=== PATIENT | male | born 1970 | race Caucasian/White ===

== ENCOUNTER 2016-11-05 16:25 | Emergency (ER) | payer BC ==
[~2016-11-05] VITALS: Ht 177.8 cm; Wt 142.9 kg
[2016-11-05] MEDS ORDERED: NYQUIL (16:39)
[2016-11-05] MEDS ORDERED: ONDANSETRON IV *ER 4 MG/2 ML VIAL IV ONE (17:00)
[2016-11-05] MEDS ORDERED: IV NS 1000 ML 1,000 ML IV ONE (17:00)
--- NOTE | 2016-11-05 17:03 | NUR ---
NOSE SWABS COLLECTED FOR FLU.
[2016-11-05 17:19] LABS: HEMOGLOBIN 15.7 g/dL (14.0-18.0)
[2016-11-05 17:24] LABS: CALCIUM 8.1 mg/dL (8.5-10.1); CREATININE 1.2 mg/dL (0.6-1.3); POTASSIUM 4.5 mmol/L (3.5-5.1)
[2016-11-05 17:27] LABS: HEMATOCRIT 46.5 % (40.0-50.0); MEAN CORPUSCULAR HEMOGLOBIN 32.6 uug (27.0-31.0); MEAN CORPUSCULAR HGB CONC 34 g/dL (32.0-37.0); MEAN CORPUSCULAR VOLUME 96.6 fL (82.0-92.0); PLATELET COUNT (AUTO) 150 K/uL (150-450); RED BLOOD CELL COUNT(AUTO) 4.82 MIL/uL (4.70-6.10); WHITE BLOOD COUNT (AUTO) 6.4 K/uL (4.0-11.2)
[2016-11-05 17:29] LABS: ALBUMIN 3.5 g/dL (3.4-5.0); BILIRUBIN,TOTAL 0.9 mg/dL (0.2-1.0); TOTAL PROTEIN, SERUM 7.1 g/dL (6.4-8.2)
[2016-11-05 18:01] LABS: BAND % (MANUAL) 4 % (0-10); EOSINOPHILS % (MANUAL) 2 % (0-8); LYMPHOCYTES % (MANUAL) 15 % (20-40); MONOCYTES % (MANUAL) 2 % (2-10); NEUTROPHILS % (MANUAL) 77 % (42-75)
[2016-11-05 18:02] LABS: PLATELET ESTIMATE ADEQUATE
[2016-11-05] MEDS ORDERED: ONDANSETRON 4 MG/2 ML VIAL ONE (18:05)
--- NOTE | 2016-11-05 18:41 | NUR ---
PT WAS D/C TO HOME. D/C INSTRUCTIONS GIVEN TO THE PT.
[2016-11-05 18:43] VITALS: BP 142/88
[2016-11-05 20:57] LABS: CREATINE KINASE MB 0.7 ng/mL (0-5.0)
== END 2016-11-05 18:44 | disposition home or self-care (01) ==
LOC: ER 16:25
DX: B34.9 Viral infection, unspecified (principal); S89.92XA Unspecified injury of left lower leg, initial encounter; R19.7 Diarrhea, unspecified; E66.01 Morbid (severe) obesity due to excess calories; Z88.0 Allergy status to penicillin; Z88.1 Allergy status to other antibiotic agents; X58.XXXA Exposure to other specified factors, initial encounter; Y93.89 Activity, other specified; Y99.8 Other external cause status; Y92.89 Other specified places as the place of occurrence of the external cause
CPT/HCPCS: 36415; 74022; 80053; 82550; 82553; 84484; 85025; 85610; 87400 ×2; 93005; 96361; 96374; 99285; A4663; J2405; J7030; 70030-TC

== ENCOUNTER 2017-05-11 12:46 | Emergency (ER) | payer BC ==
[~2017-05-11] VITALS: Ht 175.3 cm; Wt 129.3 kg
[~2017-05-11 12:46] MED LIST: NYQUIL
--- NOTE | 2017-05-11 14:58 | NUR ---
Pt siiting in the chair, awaiting to be seen by MD. Pt become irritated and stating "I'm waiting for 2 hours to be seen, what is taking so long?"
--- NOTE | 2017-05-11 15:08 | NUR ---
Patient eloped from facility. ER physician notified.
== END 2017-05-11 15:10 | disposition left against medical advice (07) ==
LOC: ER 12:48
DX: Z53.21 Procedure and treatment not carried out due to patient leaving prior to being seen by health care provider (principal)
CPT/HCPCS: A4663